=== PATIENT | female | born 1970 | race Caucasian/White ===

== ENCOUNTER → 2019-12-21 | Outpatient (CLI) | payer OTHER ==
--- NOTE | 2019-12-21 13:48 | Diagnostic Imaging Report ---
PROCEDURE: MRI lumbar spine. TECHNIQUE: Multiplanar, multisequence MRI of the lumbar spine was performed without contrast. INDICATION: Chronic low back pain. FINDINGS: Lumbar spinal curvature and alignment are unremarkable. Without correlative studies, lumbar numbering is difficult. There appears to be lumbarization of the S1 segment and there is assumed well-formed S1-S2 disc. With this numbering pattern, conus medullaris has a normal appearance at the L1 level. Lumbar vertebral body heights and disc spaces are maintained. There is mild annular bulging of the L4-L5 disc without evidence of stenosis. There is also degenerative facet arthropathy greater on the left at L4-L5. At L5-S1, there is diffuse disc bulging with associated degenerative facet arthropathy and ligamentum flavum hypertrophy resulting in moderately severe trefoil type spinal stenosis and bilateral neural foraminal stenosis. There is no significant stenosis at the S1-S2 level. IMPRESSION: Assuming lumbarization of S1 segment, there is moderately severe trefoil type spinal stenosis at L5-S1 secondary to disc bulging, endplate spurring, ligamentum flavum hypertrophy and degenerative facet arthropathy. There is also [id number] left degenerative facet arthropathy at the L4-L5 level. Dictated by: Dictated on workstation # [id number]
== END ==
LOC: RAD 12:12
PROVIDERS: ATTEND Nurse Practitioner
DX: M48.07 Spinal stenosis, lumbosacral region (principal); M51.36 Other intervertebral disc degeneration, lumbar region; M77.9 Enthesopathy, unspecified; M47.816 Spondylosis without myelopathy or radiculopathy, lumbar region
CPT/HCPCS: 72148